=== PATIENT | male | born 1970 | race Caucasian/White ===

== ENCOUNTER 2018-12-12 22:55 | Emergency (ER) | payer MEDICAID ==
[~2018-12-12] VITALS: Ht 177.8 cm; Wt 109.0 kg
[2018-12-12] MEDS ORDERED: ASPIRIN 81MG TABLET PO ONE (23:15)
[2018-12-12 23:39] LABS: BASOPHILS % 1.3 % (0.0-2.0); EOSINOPHILS % 2.6 % (0.0-5.0); HEMATOCRIT. 44.3 % (42.0-52.0); HEMOGLOBIN. 15.4 g/dL (14.0-18.0); LYMPHOCYTES % 46.7 % (20.0-50.0); MEAN CORPUSCULAR HEMOGLOBIN 35.1 pg (28.0-32.0); MEAN PLATELET VOLUME 7.2 fl (7.4-10.4); MONOCYTES % 10.9 % (2.0-8.0); NEUTROPHILS % 38.5 % (40.0-76.0); PLATELET 128 x1000/uL (130-400); RED BLOOD CELL COUNT 4.39 mill/uL (4.7-6.1); RED CELL DISTRIBUTION WIDTH 14.7 % (11.6-14.6)
[2018-12-12 23:46] LABS: CHLORIDE 105 mEq/L (98-107)
[2018-12-13 00:12] LABS: *AMPHETAMINES SCREEN URINE NEGATIVE (NEGATIVE); *BARBITURATES SCREEN URINE NEGATIVE (NEGATIVE); *BENZODIAZEPINES SCREEN URINE NEGATIVE (NEGATIVE); *COCAINE SCREEN URINE NEGATIVE (NEGATIVE); METHADONE URINE SCREEN NEGATIVE (NEGATIVE); OPIATES URINE SCREEN NEGATIVE (NEGATIVE)
[2018-12-13 00:13] LABS: CANNABINOID URINE SCREEN PRESUMTIVE POSITIVE (NEGATIVE); PHENCYCLIDINE URINE SCREEN NEGATIVE (NEGATIVE)
[2018-12-13 00:23] LABS: ETHANOL BLOOD 425 mg/dL
[2018-12-13 01:15] VITALS: BP 132/67
[2018-12-13] MEDS ORDERED: IOHEXOL-350 100 ML BOTTLE ONE (01:41)
== END 2018-12-13 02:28 | disposition home or self-care (01) ==
LOC: ER 22:55
DX: F10.20 Alcohol dependence, uncomplicated (principal); Y90.8 Blood alcohol level of 240 mg/100 ml or more; K70.10 Alcoholic hepatitis without ascites; R07.89 Other chest pain; E78.00 Pure hypercholesterolemia, unspecified; I10 Essential (primary) hypertension; I25.2 Old myocardial infarction
CPT/HCPCS: 36415; 70450; 70498; 71045; 80053; 80305; 80320; 83880; 84484; 85025; 93005; 99284; Q9967; Z7610; G0480

== ENCOUNTER 2019-05-16 02:01 | Emergency (ER) | payer MEDICAID ==
[~2019-05-16] VITALS: Ht 177.8 cm; Wt 98.0 kg
[2019-05-16 02:45] VITALS: BP 131/79
== END 2019-05-16 02:50 | disposition home or self-care (01) ==
LOC: ER 02:01
DX: H10.9 Unspecified conjunctivitis (principal); R05 Cough; E78.00 Pure hypercholesterolemia, unspecified; I10 Essential (primary) hypertension; I25.2 Old myocardial infarction; F10.20 Alcohol dependence, uncomplicated; Y90.9 Presence of alcohol in blood, level not specified
CPT/HCPCS: 99283

== ENCOUNTER 2019-06-17 12:49 | Emergency (ER) | payer MEDICAID ==
[~2019-06-17] VITALS: Ht 172.7 cm; Wt 75.0 kg
[2019-06-17 13:01] VITALS: BP 190/110
== END 2019-06-17 13:39 | disposition home or self-care (01) ==
LOC: ER 12:49
DX: H10.9 Unspecified conjunctivitis (principal); I10 Essential (primary) hypertension; E78.00 Pure hypercholesterolemia, unspecified; I25.2 Old myocardial infarction; F10.20 Alcohol dependence, uncomplicated; Y90.9 Presence of alcohol in blood, level not specified
CPT/HCPCS: 99283

== ENCOUNTER 2020-01-27 20:57 | Inpatient (IN) | payer MEDICAID ==
[~2020-01-27] VITALS: Ht 177.8 cm; Wt 115.7 kg
[~2020-01-27 20:57] MED LIST: FOLI-43 PO; LACT10SO30 MT; MIDO5TAB4 MT; THIA100T72 PO
[2020-01-27] MEDS ORDERED: MORPHINE SULFATE 4 MG/ML CPJ (NOT FOR IM USE) IV STA (21:47)
[2020-01-27] MEDS ORDERED: ONDANSETRON HCL 4MG/2ML INJ IV STA (21:47)
[2020-01-27 23:00] LABS: HEMATOCRIT. 35.7 % (42.0-52.0); HEMOGLOBIN. 12.5 g/dL (14.0-18.0); MEAN CORPUSCULAR HEMOGLOBIN 40.4 pg (28.0-32.0); MEAN CORPUSCULAR VOLUME 115.5 fL (80.0-94.0); MEAN PLATELET VOLUME 8.4 fl (7.4-10.4); PLATELET 82 x1000/uL (130-400); RED BLOOD CELL COUNT 3.09 mill/uL (4.7-6.1); RED CELL DISTRIBUTION WIDTH 15.4 % (11.6-14.6)
[2020-01-27] MEDS ORDERED: RIFAXIMIN 550 MG TABLET PO STA (23:02)
[2020-01-27 23:06] LABS: CHLORIDE 101 mEq/L (98-107)
[2020-01-27 23:08] LABS: INR 1.6; PROTHROMBIN TIME 16.7 sec (9.6-11.0)
[2020-01-27] MEDS ORDERED: LACTULOSE 20G/30ML UDC PO ONE (23:15)
[2020-01-27 23:29] LABS: PLATELET ESTIMATE DECREASED
[2020-01-28] MEDS ORDERED: DEXT 5%/0.45% NACL KCL 10MEQ/L 1,000 ML IV ONE (00:45)
[2020-01-28 10:50] VITALS: BP 97/68
[2020-01-28] MEDS ORDERED: ONDANSETRON HCL 4MG/2ML INJ IV PRN (11:15)
[2020-01-28] MEDS ORDERED: LORAZEPAM 2MG/ML CPJ IV PRN (12:45)
[2020-01-28] MEDS ORDERED: FOLIC ACID 1 MG, THIAMINE HCL 100 MG, MVI, ADULT NO.1 10 ML in DEXTROSE 5% WATER 1,000 ML IV ONE ×4 (13:00)
[2020-01-28] MEDS ORDERED: POTASSIUM CHLORIDE 20MEQ TABLET SR PO NR (13:00)
[2020-01-28] MEDS: CHLORDIAZEPOXIDE 25MG CAPSULE PO SCH ×2 (15:01→22:51)
[2020-01-28] MEDS: LACTULOSE 20G/30ML UDC PO SCH ×2 (15:02→22:51)
[2020-01-28 16:00] VITALS: BP 97/64
[2020-01-28] MEDS ORDERED: HYDR25TA PO (17:16)
[2020-01-28] MEDS ORDERED: ASPI-1497 PO (17:16)
[2020-01-28] MEDS ORDERED: ATOR20TA65 PO (17:16)
[2020-01-28] MEDS ORDERED: MULT-1146 PO (17:17)
[2020-01-28 20:00] VITALS: BP 97/64
[2020-01-28] MEDS: DEXT 5%/0.45% NACL 1000ML 1,000 ML IV SCH (23:19)
[2020-01-29] VITALS: BP 91/65
[2020-01-29 04:00] VITALS: BP 99/59
[2020-01-29] MEDS: LACTULOSE 20G/30ML UDC PO SCH ×3 (05:51→21:31)
[2020-01-29] MEDS: CHLORDIAZEPOXIDE 25MG CAPSULE PO SCH ×3 (05:51→21:31)
[2020-01-29 06:34] LABS: HEMATOCRIT. 33.9 % (42.0-52.0); HEMOGLOBIN. 11.9 g/dL (14.0-18.0); MEAN CORPUSCULAR HEMOGLOBIN 40.4 pg (28.0-32.0); MEAN CORPUSCULAR VOLUME 115.5 fL (80.0-94.0); MEAN PLATELET VOLUME 8.1 fl (7.4-10.4); PLATELET 70 x1000/uL (130-400); RED BLOOD CELL COUNT 2.93 mill/uL (4.7-6.1); RED CELL DISTRIBUTION WIDTH 15.1 % (11.6-14.6)
[2020-01-29 06:47] LABS: CHLORIDE 107 mEq/L (98-107)
[2020-01-29 07:03] LABS: TOTAL IRON BINDING CAPACITY 104 ug/dL (250-450)
[2020-01-29 08:00] VITALS: BP 90/36
[2020-01-29] MEDS: FOLIC ACID 1 MG, THIAMINE HCL 100 MG, MVI, ADULT NO.1 10 ML in DEXTROSE 5% WATER 1,000 ML IV SCH ×4 (08:26)
[2020-01-29 08:44] LABS: FOLIC ACID (FOLATE) SERUM >20 ng/mL ng/mL (>5.38)
[2020-01-29 08:56] LABS: VITAMIN B12 SERUM >2000 pg/mL pg/mL (211-911)
[2020-01-29 09:43] LABS: FERRITIN 2060 ng/mL (22-322)
[2020-01-29] MEDS ORDERED: POTASSIUM CHLORIDE 20MEQ TABLET SR PO NR (11:00)
[2020-01-29 11:43] LABS: PLATELET ESTIMATE SLIGHTLY DECREASED
[2020-01-29 12:00] VITALS: BP 104/69
[2020-01-29 16:00] VITALS: BP 115/71
[2020-01-29 20:00] VITALS: BP 101/47
[2020-01-30] VITALS: BP 95/54
[2020-01-30 04:00] VITALS: BP 100/61
[2020-01-30] MEDS: CHLORDIAZEPOXIDE 25MG CAPSULE PO SCH ×3 (06:03→21:39)
[2020-01-30] MEDS: LACTULOSE 20G/30ML UDC PO SCH ×3 (06:03→21:39)
[2020-01-30] MEDS: DEXT 5%/0.45% NACL 1000ML 1,000 ML IV SCH ×3 (06:05→19:06)
[2020-01-30 07:55] VITALS: BP 86/45
[2020-01-30] MEDS: FOLIC ACID 1 MG, THIAMINE HCL 100 MG, MVI, ADULT NO.1 10 ML in DEXTROSE 5% WATER 1,000 ML IV SCH ×4 (08:28)
[2020-01-30 12:00] VITALS: BP 114/69
[2020-01-30] MEDS: MIDODRINE HCL 5MG TABLET PO SCH ×2 (14:14→21:40)
[2020-01-30 16:00] VITALS: BP 143/74
[2020-01-30 20:00] VITALS: BP 102/64
[2020-01-30] MEDS ORDERED: POTASSIUM CHLORIDE 20MEQ/PACKET PO NR (20:00)
[2020-01-31] VITALS: BP 112/66
[2020-01-31 04:00] VITALS: BP 131/53
[2020-01-31 05:56] LABS: HEMATOCRIT. 34.5 % (42.0-52.0); HEMOGLOBIN. 12.1 g/dL (14.0-18.0); MEAN CORPUSCULAR HEMOGLOBIN 40.5 pg (28.0-32.0); MEAN CORPUSCULAR VOLUME 115.4 fL (80.0-94.0); RED BLOOD CELL COUNT 2.99 mill/uL (4.7-6.1); RED CELL DISTRIBUTION WIDTH 15.5 % (11.6-14.6)
[2020-01-31] MEDS: CHLORDIAZEPOXIDE 25MG CAPSULE PO SCH ×3 (06:21→21:45)
[2020-01-31] MEDS: LACTULOSE 20G/30ML UDC PO SCH ×3 (06:22→21:48)
[2020-01-31] MEDS: MIDODRINE HCL 5MG TABLET PO SCH ×3 (06:22→21:48)
[2020-01-31 08:02] LABS: PLATELET 59 x1000/uL (130-400)
[2020-01-31 08:07] LABS: PLATELET ESTIMATE DECREASED
[2020-01-31 08:11] VITALS: BP 98/72
[2020-01-31] MEDS ORDERED: POTASSIUM CHLORIDE 20MEQ TABLET SR PO NR (08:30)
[2020-01-31] MEDS: FOLIC ACID 1 MG, THIAMINE HCL 100 MG, MVI, ADULT NO.1 10 ML in DEXTROSE 5% WATER 1,000 ML IV SCH ×4 (08:52)
[2020-01-31 12:00] VITALS: BP 99/63
[2020-01-31] MEDS: DEXT 5%/0.45% NACL 1000ML 1,000 ML IV SCH (13:52)
[2020-01-31 16:00] VITALS: BP 98/55
[2020-01-31 20:00] VITALS: BP 92/49
[2020-02-01] VITALS: BP 103/54
[2020-02-01 04:00] VITALS: BP 96/46
[2020-02-01] MEDS: LACTULOSE 20G/30ML UDC PO SCH ×4 (06:32→21:37)
[2020-02-01] MEDS: MIDODRINE HCL 5MG TABLET PO SCH ×3 (06:33→21:37)
[2020-02-01] MEDS: CHLORDIAZEPOXIDE 25MG CAPSULE PO SCH (06:33)
[2020-02-01 08:16] VITALS: BP 92/45
[2020-02-01] MEDS: FOLIC ACID 1 MG, THIAMINE HCL 100 MG, MVI, ADULT NO.1 10 ML in DEXTROSE 5% WATER 1,000 ML IV SCH ×4 (08:45)
[2020-02-01 12:00] VITALS: BP 95/55
[2020-02-01] MEDS: PANTOPRAZOLE SODIUM 40 MG/VIAL IV SCH (13:23)
[2020-02-01] MEDS: SUCRALFATE 1 G/10 ML UDC PO SCH ×3 (13:24→21:37)
[2020-02-01 14:57] LABS: EOSINOPHILS % 1.4 % (0.0-5.0); HEMATOCRIT. 33.2 % (42.0-52.0); HEMOGLOBIN. 11.4 g/dL (14.0-18.0); MEAN CORPUSCULAR HEMOGLOBIN 40.1 pg (28.0-32.0); MEAN CORPUSCULAR VOLUME 117.3 fL (80.0-94.0); MEAN PLATELET VOLUME 8.6 fl (7.4-10.4); NEUTROPHILS % 77.6 % (40.0-76.0); RED BLOOD CELL COUNT 2.83 mill/uL (4.7-6.1); RED CELL DISTRIBUTION WIDTH 15.3 % (11.6-14.6)
[2020-02-01 15:08] LABS: PHOSPHORUS 3.9 mg/dL (2.5-4.9)
[2020-02-01 16:00] VITALS: BP 107/66
[2020-02-01] MEDS ORDERED: POTASSIUM CHLORIDE 20MEQ TABLET SR PO NR (16:00)
[2020-02-01 20:00] VITALS: BP 93/52
[2020-02-01] MEDS: DEXT 5%/0.45% NACL 1000ML 1,000 ML IV SCH (20:00)
[2020-02-01] MEDS ORDERED: CHLORDIAZEPOXIDE 25MG CAPSULE PO SCH (21:00)
[2020-02-01] MEDS: RIFAXIMIN 550 MG TABLET PO SCH (21:37)
[2020-02-02] VITALS: BP 101/81
[2020-02-02] MEDS: LACTULOSE 20G/30ML UDC PO SCH ×4 (03:13→21:30)
[2020-02-02 04:00] VITALS: BP 89/32
[2020-02-02] MEDS: MIDODRINE HCL 5MG TABLET PO SCH ×3 (05:25→21:30)
[2020-02-02] MEDS: DEXT 5%/0.45% NACL 1000ML 1,000 ML IV SCH (06:29)
[2020-02-02] MEDS: SUCRALFATE 1 G/10 ML UDC PO SCH ×4 (06:29→21:29)
[2020-02-02 08:07] LABS: BASOPHILS % 0.7 % (0.0-2.0); EOSINOPHILS % 1.3 % (0.0-5.0); HEMATOCRIT. 32.5 % (42.0-52.0); HEMOGLOBIN. 11.3 g/dL (14.0-18.0); LYMPHOCYTES % 13.5 % (20.0-50.0); MEAN CORPUSCULAR HEMOGLOBIN 40.1 pg (28.0-32.0); MEAN CORPUSCULAR VOLUME 115.7 fL (80.0-94.0); NEUTROPHILS % 77.5 % (40.0-76.0); RED BLOOD CELL COUNT 2.81 mill/uL (4.7-6.1); RED CELL DISTRIBUTION WIDTH 15.7 % (11.6-14.6)
[2020-02-02 08:08] VITALS: BP 95/43
[2020-02-02] MEDS: PANTOPRAZOLE SODIUM 40 MG/VIAL IV SCH (08:34)
[2020-02-02] MEDS: RIFAXIMIN 550 MG TABLET PO SCH ×2 (08:34→21:30)
[2020-02-02 08:47] LABS: MEAN PLATELET VOLUME 8.7 fl (7.4-10.4); PLATELET 49 x1000/uL (130-400)
[2020-02-02] MEDS ORDERED: POTASSIUM CHLORIDE 20MEQ TABLET SR PO NR (09:00)
[2020-02-02] MEDS: FOLIC ACID 1 MG, THIAMINE HCL 100 MG, MVI, ADULT NO.1 10 ML in DEXTROSE 5% WATER 1,000 ML IV SCH ×4 (09:04)
[2020-02-02 10:17] LABS: PLATELET 47 x1000/uL (130-400)
[2020-02-02 12:00] VITALS: BP 118/55
[2020-02-02 16:00] VITALS: BP 107/70
[2020-02-02 20:00] VITALS: BP 97/57
[2020-02-03] VITALS: BP 107/59
[2020-02-03] MEDS: DEXT 5%/0.45% NACL 1000ML 1,000 ML IV SCH ×3 (02:20→22:15)
[2020-02-03 04:00] VITALS: BP 84/45
[2020-02-03] MEDS: LACTULOSE 20G/30ML UDC PO SCH ×4 (05:09→22:12)
[2020-02-03] MEDS: MIDODRINE HCL 5MG TABLET PO SCH ×3 (05:10→22:13)
[2020-02-03 06:30] LABS: BASOPHILS % 1.4 % (0.0-2.0); EOSINOPHILS % 0.9 % (0.0-5.0); HEMATOCRIT. 30.9 % (42.0-52.0); HEMOGLOBIN. 10.7 g/dL (14.0-18.0); LYMPHOCYTES % 13.7 % (20.0-50.0); MEAN CORPUSCULAR HEMOGLOBIN 39.8 pg (28.0-32.0); MEAN CORPUSCULAR VOLUME 114.9 fL (80.0-94.0); MEAN PLATELET VOLUME 8.8 fl (7.4-10.4); MONOCYTES % 6.8 % (2.0-8.0); NEUTROPHILS % 77.2 % (40.0-76.0); RED BLOOD CELL COUNT 2.69 mill/uL (4.7-6.1); RED CELL DISTRIBUTION WIDTH 15.3 % (11.6-14.6)
[2020-02-03 06:35] LABS: CHLORIDE 118 mEq/L (98-107)
[2020-02-03] MEDS: SUCRALFATE 1 G/10 ML UDC PO SCH ×4 (06:36→22:13)
[2020-02-03 08:00] VITALS: BP 117/71
[2020-02-03] MEDS ORDERED: POTASSIUM CHLORIDE 20MEQ TABLET SR PO NR (09:00)
[2020-02-03] MEDS: RIFAXIMIN 550 MG TABLET PO SCH ×2 (09:40→22:12)
[2020-02-03] MEDS: FOLIC ACID 1 MG, THIAMINE HCL 100 MG, MVI, ADULT NO.1 10 ML in DEXTROSE 5% WATER 1,000 ML IV SCH ×4 (09:41)
[2020-02-03] MEDS: PANTOPRAZOLE SODIUM 40 MG/VIAL IV SCH (09:41)
[2020-02-03 11:17] LABS: PLATELET ESTIMATE MARKEDLY DECREASED
[2020-02-03 11:20] LABS: PLATELET 42 x1000/uL (130-400)
[2020-02-03 12:00] VITALS: BP 91/54
[2020-02-03 16:00] VITALS: BP 97/54
[2020-02-03 20:00] VITALS: BP 91/61
[2020-02-04] VITALS: BP 102/45
[2020-02-04 04:00] VITALS: BP 87/41
[2020-02-04] MEDS: MIDODRINE HCL 5MG TABLET PO SCH ×3 (05:46→22:30)
[2020-02-04] MEDS: LACTULOSE 20G/30ML UDC PO SCH ×3 (05:46→22:29)
[2020-02-04] MEDS: SUCRALFATE 1 G/10 ML UDC PO SCH ×3 (05:46→22:30)
[2020-02-04 07:25] LABS: BASOPHILS % 0.5 % (0.0-2.0); EOSINOPHILS % 0.8 % (0.0-5.0); HEMATOCRIT. 31.7 % (42.0-52.0); HEMOGLOBIN. 10.9 g/dL (14.0-18.0); LYMPHOCYTES % 15.1 % (20.0-50.0); MEAN CORPUSCULAR HEMOGLOBIN 39.8 pg (28.0-32.0); MEAN CORPUSCULAR VOLUME 115.5 fL (80.0-94.0); MEAN PLATELET VOLUME 8.6 fl (7.4-10.4); MONOCYTES % 7.2 % (2.0-8.0); NEUTROPHILS % 76.4 % (40.0-76.0); RED BLOOD CELL COUNT 2.74 mill/uL (4.7-6.1); RED CELL DISTRIBUTION WIDTH 15.3 % (11.6-14.6)
[2020-02-04 08:00] VITALS: BP 86/47
[2020-02-04 08:00] LABS: PLATELET 40 x1000/uL (130-400)
[2020-02-04] MEDS: RIFAXIMIN 550 MG TABLET PO SCH ×2 (10:11→22:30)
[2020-02-04] MEDS: PANTOPRAZOLE SODIUM 40 MG/VIAL IV SCH (10:12)
[2020-02-04] MEDS: FOLIC ACID 1 MG, THIAMINE HCL 100 MG, MVI, ADULT NO.1 10 ML in DEXTROSE 5% WATER 1,000 ML IV SCH ×4 (10:12)
[2020-02-04] MEDS ORDERED: SORBITOL 70% SOLN 30ML PO PRN (10:45)
[2020-02-04 16:00] VITALS: BP 102/79
[2020-02-04] MEDS ORDERED: POTASSIUM CHLORIDE 20MEQ TABLET SR PO NR (18:30)
[2020-02-04] MEDS ORDERED: LACTULOSE 300 ML in WATER FOR IRRIGATION,STERILE 700 ML IR SCH (19:00)
[2020-02-04 20:30] VITALS: BP 107/50
[2020-02-05] VITALS (20 sets, daily range): BP systolic 77–141; BP diastolic 31–90
[2020-02-05] MEDS: DEXT 5%/0.45% NACL 1000ML 1,000 ML IV SCH ×2 (05:39→14:31)
[2020-02-05] MEDS: MIDODRINE HCL 5MG TABLET PO SCH ×3 (05:41→23:07)
[2020-02-05] MEDS: LACTULOSE 20G/30ML UDC PO SCH ×3 (05:41→18:00)
[2020-02-05] MEDS: SUCRALFATE 1 G/10 ML UDC PO SCH ×4 (05:49→23:07)
[2020-02-05] MEDS ORDERED: SODIUM CHLORIDE 0.9% 1,000 ML IV ONE (08:00)
[2020-02-05] MEDS: PANTOPRAZOLE SODIUM 40 MG/VIAL IV SCH (08:23)
[2020-02-05] MEDS: RIFAXIMIN 550 MG TABLET PO SCH ×2 (08:23→23:06)
[2020-02-05] MEDS ORDERED: POTASSIUM CHLORIDE 20MEQ TABLET SR PO ONE (10:00)
[2020-02-05] MEDS: FOLIC ACID 1 MG, THIAMINE HCL 100 MG, MVI, ADULT NO.1 10 ML in DEXTROSE 5% WATER 1,000 ML IV SCH ×4 (11:19)
[2020-02-05] MEDS ORDERED: ATROPINE SULFATE 0.1MG/ML 10ML DISP.SYRIN ONE (16:38)
[2020-02-05] MEDS ORDERED: MIDAZOLAM HCL 100 MG in DEXT 5% WATER 80 ML IV PRN (16:45)
[2020-02-05 17:01] LABS: BG BASE EXCESS -14.7 mmol/L (-2.0-2.0); BG CARBOXYHEMOGLOBIN 0.9 % (0.5-1.5); BG DEOXYHEMOGLOBIN 3.3 % (0.0-5.0); BG FRACTION INSPIRED OXYGEN 28; BG OXYGEN SATURATION 96.7 % (92.0-98.5); BG OXYHEMOGLOBIN 95.8 % (94.0-97.0); BG PCO2 37.4 mmHg (35.0-45.0); BG PH 7.159 (7.350-7.450); BG PO2 100.2 mmHg (75.0-100.0); BG SAMPLE SITE RIGHT BRACHIAL; BG TOTAL HEMOGLOBIN 10.6 g/dL (12.0-18.0); BG VENT MODE NASAL CANNULA
[2020-02-05] MEDS ORDERED: SODIUM BICARBONATE 8.4% 1 MEQ/ML 50ML SYR IV NR (17:43)
[2020-02-05] MEDS ORDERED: ALBUMIN HUMAN 25GM/100ML (25%) IV NR (18:00)
[2020-02-05 18:04] LABS: BG BASE EXCESS -16.3 mmol/L (-2.0-2.0); BG CARBOXYHEMOGLOBIN 1.8 % (0.5-1.5); BG DEOXYHEMOGLOBIN 3.1 % (0.0-5.0); BG HCO3 ACT 12.1 mmol/L (22.0-26.0); BG METHEMOGLOBIN 0.1 % (0.0-1.5); BG OXYGEN SATURATION 96.8 % (92.0-98.5); BG PCO2 37.7 mmHg (35.0-45.0); BG PH 7.125 (7.350-7.450); BG PO2 99.4 mmHg (75.0-100.0); BG TOTAL HEMOGLOBIN 13.1 g/dL (12.0-18.0)
[2020-02-05] MEDS: DOPAMINE 400MG/250ML PREMIX 250 ML IV PRN (18:49)
[2020-02-05] MEDS: NOREPINEPHRINE 8 MG in DEXT 5% WATER 242 ML IV PRN (19:09)
[2020-02-05] MEDS: FENTANYL CITRATE/PF 2,500 MCG in SODIUM CHLORIDE 0.9% 200 ML IV PRN (23:21)
[2020-02-06] VITALS (22 sets, daily range): BP systolic 106–147; BP diastolic 60–78
[2020-02-06] MEDS: LACTULOSE 20G/30ML UDC PO SCH ×4 (00:24→18:41)
[2020-02-06] MEDS: DEXT 5%/0.45% NACL 1000ML 1,000 ML IV SCH (00:25)
[2020-02-06] MEDS: NOREPINEPHRINE 8 MG in DEXT 5% WATER 242 ML IV PRN ×2 (02:21→09:07)
[2020-02-06 05:38] LABS: HEMATOCRIT. 40.2 % (42.0-52.0); HEMOGLOBIN. 13.7 g/dL (14.0-18.0); MEAN CORPUSCULAR HEMOGLOBIN 39.5 pg (28.0-32.0); MEAN CORPUSCULAR VOLUME 116.2 fL (80.0-94.0); RED BLOOD CELL COUNT 3.46 mill/uL (4.7-6.1); RED CELL DISTRIBUTION WIDTH 15.5 % (11.6-14.6)
[2020-02-06] MEDS: SUCRALFATE 1 G/10 ML UDC PO SCH ×4 (06:26→21:36)
[2020-02-06] MEDS: MIDODRINE HCL 5MG TABLET PO SCH ×3 (06:27→21:37)
[2020-02-06 07:26] LABS: BG BASE EXCESS -18.4 mmol/L (-2.0-2.0); BG HCO3 ACT 9.2 mmol/L (22.0-26.0); BG PCO2 27.8 mmHg (35.0-45.0); BG PH 7.138 (7.350-7.450); BG PO2 95.3 mmHg (75.0-100.0); BG SAMPLE SITE RIGHT RADIAL; BG TOTAL HEMOGLOBIN 13.7 g/dL (12.0-18.0); BG VENT MODE VENT - AC
[2020-02-06] MEDS ORDERED: SODIUM BICARBONATE 8.4% 1 MEQ/ML 50ML SYR IV ONE (08:00)
[2020-02-06] MEDS: FOLIC ACID 1 MG, THIAMINE HCL 100 MG, MVI, ADULT NO.1 10 ML in DEXTROSE 5% WATER 1,000 ML IV SCH ×4 (09:00)
[2020-02-06] MEDS ORDERED: POTASSIUM CHLORIDE 20MEQ/PACKET PO SCH (09:15)
[2020-02-06] MEDS ORDERED: NOREPINEPHRINE 32 MG in DEXT 5% WATER 242 ML IV PRN (09:30)
[2020-02-06] MEDS ORDERED: ALBUMIN HUMAN 25GM/100ML (25%) IV NR (09:30)
[2020-02-06] MEDS: RIFAXIMIN 550 MG TABLET PO SCH ×2 (09:41→21:36)
[2020-02-06] MEDS: PANTOPRAZOLE SODIUM 40 MG/VIAL IV SCH (09:41)
[2020-02-06] MEDS: SPIRONOLACTONE 25MG TABLET PO SCH (09:41)
[2020-02-06] MEDS: SODIUM BICARBONATE 100 MEQ in SODIUM CHLORIDE 0.45% 1,000 ML IV SCH ×2 (10:00→21:36)
[2020-02-06 10:29] LABS: CREATINE KINASE 158 IU/L (39-308)
[2020-02-06 10:31] LABS: PLATELET 62 x1000/uL (130-400)
[2020-02-06 10:40] LABS: PLATELET ESTIMATE DECREASED
[2020-02-06] MEDS: CEFEPIME 1,000 MG in DEXTROSE 5% WATER 50 ML IV SCH (15:00)
[2020-02-06] MEDS: METRONIDAZOLE 500 MG PREMIX 100 ML IV SCH ×2 (15:00→22:56)
[2020-02-06] MEDS: DOPAMINE 400MG/250ML PREMIX 250 ML IV PRN ×2 (15:58→18:59)
[2020-02-06] MEDS ORDERED: LACTULOSE 300 ML in WATER FOR IRRIGATION,STERILE 700 ML IR NR (17:30)
[2020-02-06] MEDS: IPRATROPIUM/ALBUTEROL 0.5-3(2.5)MG/3ML NEB HHN SCH (20:38)
[2020-02-07] VITALS (77 sets, daily range): BP systolic 55–162; BP diastolic 29–81
[2020-02-07] MEDS: LACTULOSE 20G/30ML UDC PO SCH ×4 (00:24→19:32)
[2020-02-07] MEDS: IPRATROPIUM/ALBUTEROL 0.5-3(2.5)MG/3ML NEB HHN SCH ×3 (01:54→14:46)
[2020-02-07] MEDS: FENTANYL CITRATE/PF 2,500 MCG in SODIUM CHLORIDE 0.9% 200 ML IV PRN (03:43)
[2020-02-07] MEDS: METRONIDAZOLE 500 MG PREMIX 100 ML IV SCH ×3 (06:16→22:13)
[2020-02-07] MEDS: MIDODRINE HCL 5MG TABLET PO SCH ×3 (06:18→22:14)
[2020-02-07] MEDS: NOREPINEPHRINE 32 MG in DEXT 5% WATER 218 ML IV PRN ×4 (06:18→22:49)
[2020-02-07] MEDS: DOPAMINE 400MG/250ML PREMIX 250 ML IV PRN (06:46)
[2020-02-07] MEDS ORDERED: OCTREOTIDE 1,000 MCG in SODIUM CHLORIDE 0.9% 98 ML IV PRN (08:45)
[2020-02-07] MEDS: PANTOPRAZOLE SODIUM 40 MG/VIAL IV SCH (08:48)
[2020-02-07] MEDS: SUCRALFATE 1 G/10 ML UDC PO SCH ×4 (08:49→22:13)
[2020-02-07] MEDS: SPIRONOLACTONE 25MG TABLET PO SCH (08:49)
[2020-02-07] MEDS: FOLIC ACID 1 MG, THIAMINE HCL 100 MG, MVI, ADULT NO.1 10 ML in DEXTROSE 5% WATER 1,000 ML IV SCH ×4 (09:22)
[2020-02-07 12:41] LABS: BASOPHILS % 0.9 % (0.0-2.0); EOSINOPHILS % 0.6 % (0.0-5.0); HEMATOCRIT. 35.1 % (42.0-52.0); HEMOGLOBIN. 11.8 g/dL (14.0-18.0); LYMPHOCYTES % 12.2 % (20.0-50.0); MEAN CORPUSCULAR HEMOGLOBIN 38.5 pg (28.0-32.0); MEAN CORPUSCULAR VOLUME 114.9 fL (80.0-94.0); MONOCYTES % 6.6 % (2.0-8.0); NEUTROPHILS % 79.7 % (40.0-76.0); RED BLOOD CELL COUNT 3.06 mill/uL (4.7-6.1); RED CELL DISTRIBUTION WIDTH 15.8 % (11.6-14.6)
[2020-02-07 13:00] LABS: CHLORIDE 108 mEq/L (98-107)
[2020-02-07 13:35] LABS: PLATELET 50 x1000/uL (130-400)
[2020-02-07] MEDS: SODIUM BICARBONATE 100 MEQ in SODIUM CHLORIDE 0.45% 1,000 ML IV SCH (13:35)
[2020-02-07] MEDS ORDERED: POTASSIUM CHLORIDE 20MEQ TABLET SR PO NR (15:15)
[2020-02-07] MEDS: CEFEPIME 1,000 MG in DEXTROSE 5% WATER 50 ML IV SCH (16:01)
[2020-02-07 18:20] LABS: BG CARBOXYHEMOGLOBIN 0.6 % (0.5-1.5); BG DEOXYHEMOGLOBIN 14.9 % (0.0-5.0); BG HCO3 ACT 10.1 mmol/L (22.0-26.0); BG METHEMOGLOBIN 0.1 % (0.0-1.5); BG OXYHEMOGLOBIN 84.4 % (94.0-97.0); BG PCO2 31.6 mmHg (35.0-45.0); BG PH 7.123 (7.350-7.450); BG PO2 57.1 mmHg (75.0-100.0); BG TOTAL HEMOGLOBIN 12.1 g/dL (12.0-18.0)
[2020-02-07] MEDS ORDERED: SODIUM BICARBONATE 8.4% 1 MEQ/ML 50ML SYR IV NR (20:00)
[2020-02-08] VITALS (72 sets, daily range): BP systolic 36–132; BP diastolic 18–89
[2020-02-08] MEDS: LACTULOSE 20G/30ML UDC PO SCH ×4 (01:00→18:00)
[2020-02-08] MEDS: DOPAMINE 400MG/250ML PREMIX 250 ML IV PRN ×2 (01:25→14:38)
[2020-02-08] MEDS: SODIUM BICARBONATE 100 MEQ in SODIUM CHLORIDE 0.45% 1,000 ML IV SCH (03:18)
[2020-02-08] MEDS: NOREPINEPHRINE 32 MG in DEXT 5% WATER 218 ML IV PRN ×3 (03:58→14:38)
[2020-02-08] MEDS: METRONIDAZOLE 500 MG PREMIX 100 ML IV SCH ×2 (06:11→15:00)
[2020-02-08] MEDS: MIDODRINE HCL 5MG TABLET PO SCH ×2 (06:12→13:08)
[2020-02-08 07:55] LABS: BASOPHILS % 1.5 % (0.0-2.0); HEMATOCRIT. 32.4 % (42.0-52.0); LYMPHOCYTES % 17.3 % (20.0-50.0); MEAN CORPUSCULAR HEMOGLOBIN 38.5 pg (28.0-32.0); MEAN CORPUSCULAR VOLUME 113.6 fL (80.0-94.0); NEUTROPHILS % 72.2 % (40.0-76.0); RED BLOOD CELL COUNT 2.85 mill/uL (4.7-6.1); RED CELL DISTRIBUTION WIDTH 15.8 % (11.6-14.6)
[2020-02-08] MEDS: IPRATROPIUM/ALBUTEROL 0.5-3(2.5)MG/3ML NEB HHN SCH ×2 (08:25→15:48)
[2020-02-08] MEDS: PANTOPRAZOLE SODIUM 40 MG/VIAL IV SCH (09:09)
[2020-02-08] MEDS: SUCRALFATE 1 G/10 ML UDC PO SCH ×3 (09:09→17:30)
[2020-02-08 09:12] LABS: BG BASE EXCESS -13.6 mmol/L (-2.0-2.0); BG CARBOXYHEMOGLOBIN 0.6 % (0.5-1.5); BG DEOXYHEMOGLOBIN 16.7 % (0.0-5.0); BG FRACTION INSPIRED OXYGEN 50; BG HCO3 ACT 11.6 mmol/L (22.0-26.0); BG METHEMOGLOBIN 0.2 % (0.0-1.5); BG OXYGEN SATURATION 83.2 % (92.0-98.5); BG OXYHEMOGLOBIN 82.5 % (94.0-97.0); BG PCO2 25.5 mmHg (35.0-45.0); BG PH 7.277 (7.350-7.450); BG PO2 53.4 mmHg (75.0-100.0); BG SAMPLE SITE RIGHT RADIAL; BG TOTAL HEMOGLOBIN 11.1 g/dL (12.0-18.0); BG VENT MODE VENT - AC
[2020-02-08] MEDS: FOLIC ACID 1 MG, THIAMINE HCL 100 MG, MVI, ADULT NO.1 10 ML in DEXTROSE 5% WATER 1,000 ML IV SCH ×4 (09:21)
[2020-02-08] MEDS: SPIRONOLACTONE 25MG TABLET PO SCH (09:21)
[2020-02-08 09:44] LABS: MEAN PLATELET VOLUME 9.3 fl (7.4-10.4)
[2020-02-08 09:48] LABS: PLATELET 41 x1000/uL (130-400)
[2020-02-08] MEDS ORDERED: KCL 20MEQ/100ML PREMIX 100 ML IV NR (12:00)
[2020-02-08] MEDS ORDERED: MORPHINE SULFATE 250 MG in DEXT 5% WATER 240 ML IV PRN (13:15)
[2020-02-08] MEDS: CEFEPIME 1,000 MG in DEXTROSE 5% WATER 50 ML IV SCH (15:00)
== END 2020-02-08 18:03 | disposition expired | DRG 720 ==
LOC: ER 20:57 → 5WST 01-28 00:56 → EDBEDREQ 01-28 01:00 → EDBEDREQDT 01-28 01:00 → EDBEDREQTM 01-28 01:00 → ENRESERV 01-28 08:58 → 5EST 02-05 07:39
PROVIDERS: ADMIT Internal Medicine; ATTEND Internal Medicine
PROC: 02HV33Z Insertion of Infusion Device into Superior Vena Cava, Percutaneous Approach (ICD-10-PCS; principal; 2020-02-05)
PROC: B548ZZA Ultrasonography of Superior Vena Cava, Guidance (ICD-10-PCS; 2020-02-05)
PROC: 5A1945Z Respiratory Ventilation, 24-96 Consecutive Hours (ICD-10-PCS; 2020-02-05)
PROC: 0BH17EZ Insertion of Endotracheal Airway into Trachea, Via Natural or Artificial Opening (ICD-10-PCS; 2020-02-05)
DX: A41.9 Sepsis, unspecified organism (principal); K70.40 Alcoholic hepatic failure without coma; K70.31 Alcoholic cirrhosis of liver with ascites; N17.0 Acute kidney failure with tubular necrosis; E43 Unspecified severe protein-calorie malnutrition; G93.41 Metabolic encephalopathy; E87.1 Hypo-osmolality and hyponatremia; K85.90 Acute pancreatitis without necrosis or infection, unspecified; E87.6 Hypokalemia; E78.5 Hyperlipidemia, unspecified; D63.8 Anemia in other chronic diseases classified elsewhere; D68.9 Coagulation defect, unspecified; D69.59 Other secondary thrombocytopenia; D75.89 Other specified diseases of blood and blood-forming organs; I25.2 Old myocardial infarction; E86.9 Volume depletion, unspecified; E87.2 Acidosis; F10.239 Alcohol dependence with withdrawal, unspecified; G47.33 Obstructive sleep apnea (adult) (pediatric); I12.9 Hypertensive chronic kidney disease with stage 1 through stage 4 chronic kidney disease, or unspecified chronic kidney disease; I86.4 Gastric varices; J96.00 Acute respiratory failure, unspecified whether with hypoxia or hypercapnia; Z66 Do not resuscitate; K76.6 Portal hypertension; K92.2 Gastrointestinal hemorrhage, unspecified; K76.7 Hepatorenal syndrome; J69.0 Pneumonitis due to inhalation of food and vomit; N18.9 Chronic kidney disease, unspecified; R57.9 Shock, unspecified; D53.9 Nutritional anemia, unspecified; Z51.5 Encounter for palliative care; F12.10 Cannabis abuse, uncomplicated; K52.9 Noninfective gastroenteritis and colitis, unspecified; R00.1 Bradycardia, unspecified; Z68.36 Body mass index [BMI] 36.0-36.9, adult
CPT/HCPCS: 36415; 36600; 71045; 74181; 76937; 80048; 80053; 80076; 82140; 82248; 82270; 82375; 82550; 82607; 82728; 82746; 82805; 82962; 83540; 83550; 83605; 83735; 84100; 84132; 85025; 93005; 93306; 95816; 97162; 97530; 99285; C1725; C1769; C9113; J0461; J0692; J1265; J2060; J2250; J2270; J2274; J2354; J2405; J3010; J3411; J3480; J3490; J7050; J7060; J7070; P9047